=== PATIENT | female | born 2000 | race Caucasian/White ===

== ENCOUNTER 2020-03-14 20:51 | Emergency (ER) | payer OTHER, SELFPAY ==
[2020-03-14 20:52] VITALS: BP 138/86; PULSE 117; RESP 18; TEMP 36; O2SAT 100
[2020-03-14 21:39] LABS: Basophils Absolute Auto 0.1 K/mm3 (0.0-0.1); Basophils Percent Auto 0.4 % (0.2-1.2); Eosinophils Absolute Auto 0.1 K/mm3 (0-0.3); Eosinophils Percent Auto 0.4 % (0-4.4); Hemoglobin 13.1 g/dL (12.0-15.0); Immature Granulocyte Absolute 0.06 K/mm3 (0.00-0.031); Immature Granulocyte Percent A 0.5 % (0-0.5); Lymphocytes Absolute Auto 2.34 K/mm3 (0.9-3.2); Lymphocytes Percent Auto 17.9 % (18.3-44.2); Mean Corpuscular HGB Conc 33.6 g/dl (32-36); Mean Corpuscular Hemoglobin 29.2 pg (26-34); Mean Corpuscular Volume 86.9 fl (80-100); Mean Platelet Volume 10.7 fl (7.4-10.4); Monocytes Absolute Auto 1.5 K/mm3 (0.1-0.6); Monocytes Percent Auto 11.3 % (2.6-8.5); Neutrophils Absolute Auto 9.1 K/mm3 (1.3-6.7); Neutrophils Percent Auto 69.5 % (45.5-73.1); Platelet Count Result 314 k/mm3 (150-375); Red Blood Count 4.49 M/mm3 (4.2-5.4); Red Cell Distribution Width 12.7 % (11.5-14.5)
[2020-03-14 21:48] LABS: Alanine Aminotransferase 21 U/L (4-35); Albumin Level 4.4 g/dL (3.7-5.6); Alkaline Phosphatase 83 U/L (45-116); Anion Gap 12 mmol/L (8-16); Aspartate Amino Transferase 22 U/L (14-36); Bilirubin,Total 0.2 mg/dL (0.2-1.3); Blood Urea Nitrogen 12 mg/dL (8-21); Calcium 9.3 mg/dL (8.9-10.7); Carbon Dioxide 26 mmol/L (22-30); Chloride 103 mmol/L (98-107); Estimated CRCL calculation 122 ml/min; Estimated Glomerular Filt Rate > 60; Glucose 88 mg/dL (65-105); Lipase 52 U/L (23-300); Potassium 3.7 mmol/L (3.4-5.0); Sodium 141 mmol/L (134-143)
[2020-03-14 22:01] VITALS: BP 105/72; PULSE 100; RESP 18; TEMP 36.2; O2SAT 99
--- NOTE | 2020-03-14 22:31 | ED.ABDPAIN ---
HPI - Abdominal Pain General Chief Complaint: Abdominal Pain Stated Complaint: preg/RLQ pain Time Seen by Provider: 03/14/20 21:12 Source: patient Mode of arrival: ambulatory Limitations: no limitations History of Present Illness HPI narrative: 19-year-old 2 para 1 about few weeks of gestation here with complaints of lower abdominal pain and back pain. Patient states that she came to know that she was a week ago. She denies any vaginal bleeding or discharge. She states the pain is mostly in the lower abdomen. She denies any urinary symptoms MD elicited complaint: abdominal pain Pertinent past history: none Onset (ago): week(s) (1) Pain Consistency: intermittent Location: other (Lower abdomen) Severity: mild Quality: aching Relieving factors: nothing Associated symptoms: denies other symptoms Related Data Home Medications Medication Instructions Recorded Confirmed [id number] tablet PO 03/14/20 [] Allergies Allergy/AdvReac Type Severity Reaction Status Date / Time No Known Allergies Allergy Verified 03/14/20 21:05 Review of Systems Review of Systems: All systems reviewed & are unremarkable except as noted in HPI and below Constitutional: Constitutional: Reports no additional constitutional complaints Eyes: Eyes: Reports as per HPI ENT: Reports system reviewed and no additional complaints, except as documented Cardiovascular: Cardiovascular: Reports no additional cardiovascular complaints Gastrointestinal: Gastrointestinal: Reports no additional gastrointestinal complaints Musculoskeletal: Musculoskeletal: Reports no additional musculoskeletal complaints Exam Narrative: Exam Narrative: GENERAL: Well-appearing, well-nourished, and in no acute distress. HEAD: Normocephalic, atraumatic. EYES: PERRLA and EOMI. ENT: Nares clear, Mucous membranes moist. NECK: Supple. CHEST: Clear to auscultation. No respiratory distress. HEART: Regular rate and rhythm. No murmur heard. Normal peripheral pulses. ABDOMEN: Soft, nontender, nondistended, normal active bowel sounds. EXTREMITIES: Normal range of motion. No edema. SKIN: Warm, dry, no rash. NEURO: No focal deficits. Alert and oriented x3. PSYCH: Normal mood and affect. Course Course Emergency Course: Inform patient about her lab work. Her beta-hCG is 58 . Informed her it is too early to visualize and ultrasound. I advised her to follow-up with Dr. Zhao in a week's time and repeat beta-hCG. Meanwhile advised her to take Tylenol as needed for pain if needed Vital Signs Vital signs: Vital Signs Temperature 36.0 C L 03/14/20 20:52 Pulse Rate 117 H 03/14/20 20:52 Respiratory Rate 18 03/14/20 20:52 Blood Pressure 138/86 03/14/20 20:52 Pulse Oximetry 100 03/14/20 20:52 Temperature 36.0 C L 03/14/20 20:52 Pulse Rate 117 H 03/14/20 20:52 Respiratory Rate 18 03/14/20 20:52 Blood Pressure 138/86 03/14/20 20:52 Pulse Oximetry 100 03/14/20 20:52 MDM - Abdominal Pain Lab Data Result diagrams: 03/14/20 21:22 03/14/20 21:22 Labs: Lab Results 03/14/20 03/14/20 03/14/20 Range/Units 21:22 21:22 21:28 WBC 13.0 H (4.5-10.0) K/mm3 RBC 4.49 (4.2-5.4) M/mm3 Hgb 13.1 (12.0-15.0) g/dL Hct 39.0 (37.0-47.0) % MCV 86.9 (80-100) fl MCH 29.2 (26-34) pg MCHC 33.6 (32-36) g/dl RDW 12.7 (11.5-14.5) % Plt Count 314 (150-375) k/mm3 MPV 10.7 H (7.4-10.4) fl Immature Gran % (Auto) 0.5 (0-0.5) % Neut % (Auto) 69.5 (45.5-73.1) % Lymph % (Auto) 17.9 L (18.3-44.2) % Fallon % (Auto) 11.3 H (2.6-8.5) % Eos % (Auto) 0.4 (0-4.4) % Baso % (Auto) 0.4 (0.2-1.2) % Lymph # (Auto) 2.34 (0.9-3.2) K/mm3 Fallon # (Auto) 1.5 H (0.1-0.6) K/mm3 Eos # (Auto) 0.1 (0-0.3) K/mm3 Baso # (Auto) 0.1 (0.0-0.1) K/mm3 Abs Immat Gran (auto) 0.06 H (0.00-0.031) K/mm3 Absolute Neuts
[2020-03-14 23:00] VITALS: BP 111/78; PULSE 106; RESP 20; TEMP 36.6; O2SAT 99
== END 2020-03-14 23:03 | disposition home or self-care (01) ==
PROVIDERS: Emergency Provider Family Medicine
DX: O26.891 Other specified pregnancy related conditions, first trimester (principal); R10.30 Lower abdominal pain, unspecified; Z3A.01 Less than 8 weeks gestation of pregnancy
CPT/HCPCS: 36415; 80053; 83690; 84702; 85025; 99283

== ENCOUNTER 2020-09-02 21:16 | Observation (INO) | payer OTHER, SELFPAY ==
[2020-09-02 21:34] VITALS: BP 120/77; PULSE 88
[2020-09-02 21:48] VITALS: BMI 35.2
--- NOTE | 2020-09-02 21:49 | OBADM ---
This patient, Clarissa Turk, admitted to the OB room [facility] for observation. Patient/family oriented to hospital policies and general routines including ID bracelet, bed and alarms, visiting hours, pain management, procedures, bathroom and other care routines, personal items, smoking policy, room service/diet, and visiting hours. Patient/Family are encouraged to report perceived risks to care and to ask questions if they do not understand what they are told or what they should do.
--- NOTE | 2020-09-21 09:06 | PM.OBTRLD ---
OB - Triage/Final Diagnosis Visit Information Comments/Additional reasons for admission: I have assessed the risk for this patient, Clarissa Turk, and determined that she would benefit from observation care. Final Diagnosis (1) Decreased movement: Code(s): O36.8190 - Decreased movements, unspecified trimester, not applicable or unspecified Status: Acute
== END 2020-09-02 22:05 | disposition home or self-care (01) ==
PROVIDERS: Admitting Provider Obstetrics & Gynecology; Visit Provider Obstetrics & Gynecology
DX: O36.8190 Decreased fetal movements, unspecified trimester, not applicable or unspecified (principal); Z3A.00 Weeks of gestation of pregnancy not specified
CPT/HCPCS: G0378; G0379

== ENCOUNTER 2022-01-25 10:43 | Emergency (ER) | payer MEDICAID, SELFPAY ==
--- NOTE | ~2022-01-25 | CT_ITS ---
EXAMINATION: CT abdomen pelvis w con DATE: 01/25/2022 13:23 INDICATION: Abdominal pain. TECHNIQUE: Computed tomography (CT) of the abdomen and pelvis was performed with 100 mL Omnipaque 350 intravenous contrast. Automated exposure control and iterative reconstruction technique were employe d. The dose-length product was 1196.31 mGy-cm. COMPARISON: None. FINDINGS: The visualized portions of the lung bases are clear without pneumonia or pleural effusion. The heart size is normal. No pericardial effusion. The liver, gallbladder, spleen, pancreas, adrenal glands, and kidneys are normal. There are no dilated loops of bowel. The appendix is normal. There ar e no pathologically enlarged lymph nodes. There is no free intraperitoneal fluid. There is levocurvat ure of lumbar spine. IMPRESSION: 1. No etiology for the patient's symptoms. Reviewed, dictated and finalized at location A.
[2022-01-25 10:45] VITALS: BP 148/89; PULSE 99; RESP 18; TEMP 36.6; O2SAT 100
[2022-01-25 11:29] LABS: Appearance Urine Clear (Clear); Bilirubin Urine Negative (Negative); Blood Urine Negative (Negative); Color Urine Yellow (Yellow); Glucose Urine UA Negative (Negative); Ketones Urine Negative (Negative); Leukocyte Esterase Ur 1+ LEU/UL (Negative); Nitrate Urine Negative (Negative); Protein Urine Negative (Negative); Urobilinogen Urine 0.2 mg/dL (<2.0)
[2022-01-25 11:33] LABS: Bacteria Urine Trace /hpf; Mucus Urine Rare /lpf; RBC Urine 0-2 /hpf (0-2); Squamous Epithelial Cell Urine Few /hpf (Few)
[2022-01-25 11:34] LABS: Basophils Absolute Auto 0.1 K/mm3 (0.0-0.1); Basophils Percent Auto 0.7 % (0.2-1.2); Eosinophils Absolute Auto 0.1 K/mm3 (0-0.3); Hematocrit 40.2 % (37.0-47.0); Hemoglobin 13.2 g/dL (12.0-15.0); Immature Granulocyte Absolute 0.03 K/mm3 (0.00-0.031); Immature Granulocyte Percent A 0.3 % (0-0.5); Lymphocytes Absolute Auto 1.21 K/mm3 (0.9-3.2); Lymphocytes Percent Auto 13.8 % (18.3-44.2); Mean Corpuscular HGB Conc 32.8 g/dl (32-36); Mean Corpuscular Hemoglobin 28.8 pg (26-34); Mean Corpuscular Volume 87.8 fl (80-100); Mean Platelet Volume 10.8 fl (7.4-10.4); Monocytes Percent Auto 11.5 % (2.6-8.5); Neutrophils Absolute Auto 6.4 K/mm3 (1.3-6.7); Neutrophils Percent Auto 72.7 % (45.5-73.1); Platelet Count Result 269 k/mm3 (150-375); Red Blood Count 4.58 M/mm3 (4.2-5.4); Red Cell Distribution Width 12.9 % (11.5-14.5); White Blood Count 8.8 K/mm3 (4.5-10.0)
[2022-01-25 11:40] LABS: Add Urine Microscopic? YES
[2022-01-25] MEDS: SODIUM CHLORIDE 0.9% IV 1,000 ML 999 ML IV CONT (11:59)
[2022-01-25] MEDS: KETOROLAC 30 MG/ML VIAL (*BKC) IV PUSH (11:59)
[2022-01-25 12:55] LABS: Alanine Aminotransferase 20 U/L (6-35); Albumin Level 4.2 g/dL (3.5-5.1); Alkaline Phosphatase 75 U/L (38-126); Anion Gap 10 mmol/L (8-16); Aspartate Amino Transferase 25 U/L (14-36); Bilirubin,Total 0.5 mg/dL (0.2-1.3); Blood Urea Nitrogen 16 mg/dL (7-17); Calcium 8.3 mg/dL (8.4-10.2); Carbon Dioxide 24 mmol/L (22-30); Chloride 104 mmol/L (98-107); Estimated Glomerular Filt Rate > 60; Glucose 91 mg/dL (65-110); Lipase 40 U/L (23-300); Potassium 3.3 mmol/L (3.4-5.0); Sodium 138 mmol/L (137-145)
[2022-01-25] MEDS: NITROFURANTOIN MONOHYD MACROCR 100 MG CAP PO (13:56)
[2022-01-25] MEDS: POTASSIUM CHLORIDE 20 MEQ TABLET PO (14:00)
--- NOTE | 2022-01-25 14:02 | ED.ABDPAIN ---
HPI - Abdominal Pain General Chief Complaint: Abdominal Pain Stated Complaint: abd pain, swellilng Time Seen by Provider: 01/25/22 11:08 Source: RN notes reviewed History of Present Illness HPI narrative: Patient presents emergency department from home for abdominal pain. Patient states symptoms initially began approximately 2 weeks ago. The pain is described as cramping and is intermittent in nature states is in the bilateral lower abdomen and does not radiate. Patient states that she has had no fevers or chills she denies any nausea vomiting or diarrhea. She states she did have a heavier than normal menstrual cycle began 2 weeks ago but she has no longer having any bleeding she denies any vaginal discharge states she is not taking thing for the pain today Related Data Home Medications Medication Instructions Recorded Confirmed [id number]-[id number]-[id number] 1 mg tablet PO 03/14/20 tablet Allergies Allergy/AdvReac Type Severity Reaction Status Date / Time No Known Allergies Allergy Verified 03/14/20 21:05 Review of Systems Review of Systems: Gen.: Denies fevers or chills ENT: Denies congestion Respiratory: Denies shortness of breath or cough CV: Denies chest pain or palpitations GI see HPI denies burning, urgency, frequency or hematuria Musculoskeletal: Denies back pain or muscle pain Neuro: Denies numbness, tingling, weakness or focal weakness Skin: Denies rash Except as documented, all other systems reviewed and negative [facility] Past Medical History Medical History (Updated 01/25/22 @ 14:05 by Rufino Dyer DO) Patient denies significant medical history Social History Social History (Updated 01/25/22 @ 14:03 by Rufino Dyer DO) Smoking status: Never smoker Exam Narrative: APPEARANCE: No acute distress, nontoxic, resting in bed HEENT: Normocephalic, atraumatic, OMM RESPIRATORY: No respiratory distress, clear to auscultation bilaterally with no rhonchi wheezing or rales CARDIOVASCULAR: RRR s murmur ABDOMINAL: Soft nondistended tender palpation right lower quadrant and left lower quadrant no tenderness right upper quadrant and left upper quadrant no rebound or guarding MUSCULOSKELETAl: Moves all extremities. No clubbing, cyanosis or edema. NEURO: Awake and alert. Following commands, speech normal, no focal deficits SKIN:: Warm, dry. Normal Color PSYCHIATRIC: Normal affect/mood Course Course Emergency Course: Patient states that they are feeling much better at this time. States abdominal pain has resolved. Repeat abdominal exam shows the patient's abdomen to be soft and nontender. Discussed with patient results of workup and diagnosis. Discussed need for follow-up with primary care physician, reasons to return to the emergency department in proper use of medication. Patient understands and agrees to current treatment plan Vital Signs Vital signs: Vital Signs Temperature 97.9 F 01/25/22 10:45 Pulse Rate 99 01/25/22 10:45 Respiratory Rate 18 01/25/22 10:45 Blood Pressure 148/89 H 01/25/22 10:45 Pulse Oximetry 100 01/25/22 10:45 Oxygen Delivery Room Air 01/25/22 10:45 Temperature 97.9 F 01/25/22 10:45 Pulse Rate 99 01/25/22 10:45 Respiratory Rate 18 01/25/22 10:45 Blood Pressure 148/89 H 01/25/22 10:45 Pulse Oximetry 100 01/25/22 10:45 Oxygen Delivery Room Air 01/25/22 10:45 MDM - Abdominal Pain MDM Narrative Medical decision making narrative: Patient's abdomen is soft without significant pain or signs of surgical abdomen on serial exams. Lab and x-ray evaluations are reviewed and patient is felt to be a reasonable candidate for outpatient management. Patient was instructed as to limitations of x-ray and laboratory evaluation and encouraged to return to ED or primary physician for repeat exam in 12 hours if continued or worsening pain Lab Data Result diagrams: 01/25/22 11:17 01/25/22 12:26 Labs: Lab Results
[2022-01-25 14:13] VITALS: BP 138/62; PULSE 72; RESP 18; O2SAT 99
== END 2022-01-25 14:14 | disposition home or self-care (01) ==
PROVIDERS: Emergency Provider Emergency Medicine
DX: N39.0 Urinary tract infection, site not specified (principal); R10.30 Lower abdominal pain, unspecified
CPT/HCPCS: 36415; 74177; 80053; 81001; 81025; 83690; 85025; 96361; 96374; 99284; A9270; J1885; J7030; Q9967